=== PATIENT | female | born 1990 | race African-American/Black ===

== ENCOUNTER 2016-12-05 20:30 | Emergency (ER) | payer OTHER ==
[~2016-12-05] VITALS: Ht 162.6 cm; Wt 45.4 kg
[2016-12-05 20:30] VITALS: BP 118/75
[~2016-12-05 20:30] MED LIST: PREN1TAB54 PO
[2016-12-05] MEDS ORDERED: IBUPROFEN 600 MG TABLET. PO ONE (22:15)
--- NOTE | 2016-12-05 22:39 | PHYS DOC ---
Past Medical History Past Medical History: No Pertinent History Past Surgical History: Other Additional Past Surgical Histo: D&C Alcohol Use: None Drug Use: None Adult General Chief Complaint Chief Complaint: ANKLE PROBLEM HPI HPI Patient is a 26 year old female who presents with moderate right lateral ankle pain that began today after she fell into a hole. Review of Systems Review of Systems Constitutional: Denies fever or chills [] Musculoskeletal: Right ankle pain Integument: Denies rash or skin lesions [] Neurologic: Denies headache, focal weakness or sensory changes [] Endocrine: Denies polyuria or polydipsia [] Current Medications Current Medications Current Medications Medications (Trade) Dose Ordered Sig/Fam Start Time Stop Time Status Last Admin Dose Admin Ibuprofen (Motrin) 600 mg 1X ONCE 12/05/16 22:15 12/05/16 22:16 DC 12/05/16 22:11 600 MG Allergies Allergies Allergies Coded Allergies Type Severity Reaction Last Updated Verified diphenhydramine Allergy Mild Hives 02/20/14 Yes Physical Exam Physical Exam Constitutional: Well developed, well nourished, no acute distress, non-toxic appearance. [] Skin: Warm, dry, no erythema, no rash. [] Back: No tenderness, no CVA tenderness. [] Extremities: Right ankle with small amount of soft tissue swelling diffusely. Tenderness on palpation of the right lateral ankle. Full range of motion to the right ankle. Adequate flexor and extension of the right foot. +2 right pedal pulse. Cap refill less than 2 seconds the right lower extremity. Sensation intact to light extremity. Neurologic: Alert and oriented X 3, normal motor function, normal sensory function, no focal deficits noted. [] Psychologic: Affect normal, judgement normal, mood normal. [] EKG EKG [] Radiology/Procedures Radiology/Procedures [] Course & Med Decision Making Course & Med Decision Making Pertinent Labs and Imaging studies reviewed. (See chart for details) Patient is in the ED with right ankle pain after falling in a hole. Right ankle x-rays interpreted by Dr. Beltrán is negative for any acute findings. Air cast was applied to the right ankle by the ED RN, neurovascular exam done by me is normal, cap refill less than 2 seconds. Ice elevation encouraged, provided crutches. Early for pain. Follow-up with open a week if pain continues. Dragon Disclaimer Dragon Disclaimer This electronic medical record was generated, in whole or in part, using a voice recognition dictation system. Departure Departure Impression: Primary Impression: Right ankle sprain Additional Impression: Slipping, tripping and stumbling without falling due to stepping into hole or opening, initial encounter Disposition: 01 HOME, SELF-CARE Condition: STABLE Referrals: NO PCP (PCP) RUSSELL GILLIAM MD See him in one week if pain continues Patient Instructions: Ankle Sprain, Acute, with Phase I Rehab[facility]Sports[facility] Additional Instructions: You were seen for right ankle sprain, ice and elevate the extremity. Wear the air cast as needed follow-up with the orthopedic doctor provided with your own doctor. Problem Qualifiers Primary Impression: Right ankle sprain Encounter type: initial encounter Involved ligament of ankle: unspecified ligament Qualified Code: S93.401A - Sprain of unspecified ligament of right ankle, initial encounter KENYETTA BLUE APRN Dec 05, 2016 22:39
[2016-12-05] MEDS ORDERED: LACO50TA PO (22:42)
[2016-12-05] MEDS ORDERED: AMLO1CAP8 PO (22:42)
--- NOTE | 2016-12-06 08:20 | RAD ---
Indication injury. Pain. AP oblique and lateral views of the right ankle were obtained. No bony abnormality is seen
== END 2016-12-05 22:48 | disposition home or self-care (01) ==
LOC: ER 20:30
DX: S93.401A Sprain of unspecified ligament of right ankle, initial encounter (principal); Z88.8 Allergy status to other drugs, medicaments and biological substances; W17.2XXA Fall into hole, initial encounter; Y93.89 Activity, other specified; Y92.89 Other specified places as the place of occurrence of the external cause; Y99.8 Other external cause status
CPT/HCPCS: 73610; 99284-25